=== PATIENT | male | born 1975 | race Hispanic/Latino ===

== ENCOUNTER 2018-07-22 21:36 | Emergency (ER) | payer OTHER ==
[2018-07-22] MEDS ORDERED: FLUORESCEIN SODIUM 1 STRIP STRIP ONE (21:54)
[2018-07-22] MEDS ORDERED: TETRACAINE HCL 0.5% 4 ML OPHTH SOLN ONE (21:54)
[2018-07-22] MEDS ORDERED: HYDROCODONE/ACETAMINOPHEN 5/325 MG TAB ONE (23:41)
[2018-07-22] MEDS ORDERED: ERYTHROMYCIN BASE 0.5% OPHTH OINT 1 GM TUBE ONE (23:41)
[2018-07-22] MEDS ORDERED: TETANUS/DIPHTHERIA TOXOID [ADULT] 0.5 ML VIAL IM ONE (23:42)
== END 2018-07-23 00:20 | disposition home or self-care (01) ==
LOC: EDH 21:36
DX: T15.02XA Foreign body in cornea, left eye, initial encounter (principal); Z72.0 Tobacco use; X58.XXXA Exposure to other specified factors, initial encounter; Y93.89 Activity, other specified; Y92.89 Other specified places as the place of occurrence of the external cause; Y99.8 Other external cause status
CPT/HCPCS: 65220; 90471; 90714